=== PATIENT | female | born 1970 | race Caucasian/White ===

== ENCOUNTER 2018-12-26 16:00 | Emergency (ER) | payer OTHER ==
[~2018-12-26] VITALS: Wt 78.0 kg
[~2018-12-26 16:00] MED LIST: ACET-2158 PO; METO-319 PO
[2018-12-26] MEDS ORDERED: KETOROLAC 30 MG INJ IM STA (17:53)
[2018-12-26] MEDS ORDERED: CEFTRIAXONE 1 GM INJ IM ONE (18:00)
[2018-12-26] MEDS ORDERED: NPH10OT BOTH EARS (20:06)
[2018-12-26 20:15] VITALS: BP 154/80; PULSE 62; RESP 19
--- NOTE | 2018-12-27 01:20 | ERD ---
ER Documentation Chief Complaint Chief Complaint chau ear pain HPI 48-year-old female presented emergency department complaining of bilateral ear pain and mastoid pain for the past 2 weeks. Current pain is rated 8/10 in severity and constant. She denies having the symptoms in the past. Symptoms are worse at night. She took [id number] medication with some relief. She denies any fevers or chills or other symptoms at this time. ROS All systems reviewed and are negative except as per history of present illness. Medications Home Meds Active Scripts Neomycin/Polymyxin/Hydrocort* (Cortisporin* Otic) 10 Ml Susp, 4 DROP BOTH EARS QID for 7 Days, #2 BOTTLE Prov:IDALMIS BROWNLEE PA-C 12/26/18 Acetaminophen (TYLENOL 325 MG TAB) 325 Mg Tab, 650 MG PO Q6H PRN for PAIN, #0 TAB Prov:DARCY CARROLL NP 04/02/14 Reported Medications Metoprolol Succinate* (Toprol XL*) 50 Mg Tab.er.24h, 50 MG PO DAILY, TAB 07/12/14 Allergies Allergies: Coded Allergies: No Known Allergy (Unverified , 07/12/14) PMhx/Soc Medical and Surgical Hx: pt denies Medical Hx History of Surgery: Yes (c- section) Anesthesia Reaction: No Hx Neurological Disorder: No Hx Respiratory Disorders: No Hx Cardiac Disorders: No Hx Psychiatric Problems: No Hx Miscellaneous Medical Probl: No Hx Alcohol Use: No Hx Substance Use: No Hx Tobacco Use: No Smoking Status: Never smoker FmHx Family History: No diabetes Physical Exam Vitals Vital Signs Date Temp Pulse Resp B/P (MAP) Pulse Ox O2 O2 Flow FiO2 Time Delivery Rate 12/26/18 98.0 62 19 154/80 100 Room Air 20:15 (104) 12/26/18 98.1 89 18 160/92 99 16:05 (114) Physical Exam Const: No acute distress Head: Atraumatic Eyes: Normal Conjunctiva ENT: Normal External Ears, Nose and Mouth. Neck: Full range of motion. No meningismus. Resp: Clear to auscultation bilaterally Cardio: Regular rate and rhythm, no murmurs Abd: Soft, non tender, non distended. Normal bowel sounds Skin: No petechiae or rashes Back: No midline or flank tenderness Ext: No cyanosis, or edema Neur: Awake and alert Psych: Normal Mood and Affect Results 24 hrs Laboratory Tests Test 12/26/18 18:22 POC Beta HCG, Qualitative NEGATIVE Current Medications Medications Dose Sig/Fatmata Start Time Status Last (Trade) Ordered Route PRN Stop Time Admin Dose Reason Admin Ceftriaxone 1 gm ONCE ONCE 12/26/18 DC 12/26/18 Sodium IM 18:00 18:39 (Rocephin) 12/26/18 18:01 Ketorolac 30 mg ONCE STAT 12/26/18 DC 12/26/18 Tromethamine IM 17:53 18:40 (Toradol) 12/26/18 17:57 [place] [id number] Radiology Main Line: [phone] DIAGNOSTIC IMAGING REPORT Patient: WILMER MARIN : 1970 Age: 48 Sex: F MR #: [id number] DOS: 12/26/18 0000 Ordering MD: IDALMIS BROWNLEE PA-C Location: [facility] Room/Bed: PROCEDURE: CT Temporal Bones. CLINICAL INDICATION: 48 -year-old female. Bilateral Mastoid tenderness. TECHNIQUE: A CT of the temporal bones was performed on a multi-slice CT scanner utilizing high-resolution axial images. Sagittal, coronal, and multiplanar reformatted images were made. One or more the following dose reduction techniques were utilized: Automated exposure control, adjustment of the mA/ or kV according to patient's size, or use of iterative reconstruction technique. DICOM images are available for review. The CTDIvol is 28.94 mGy and the DLP is 355.41 mGycm. COMPARISON: None. FINDINGS: RIGHT TEMPORAL BONE External auditory canal: Thickened soft tissues in the cartilaginous and osseous segment of the external auditory canal a resolving and canal narrowing. No significant cerumen. Normal appearing tympanic membrane. Mastoid process: Well pneumatized and aerated. Minimal fluid in a few inferior mastoid air cells. Intact tegmen tympani. No bone erosion. Normal appearing aditus ad antrum. Normal appearing vertical/mastoid segment of the facial nerve canal. Middle ear: Well pneumatized and aerated. Normal ossicular configuration. The scutum is sharp. Prussak's space is clear. No abnormal soft tissue in the epitympanum, mesotympanum or hypotympanum. The oval and round windows are clear. Normal appearing tympanic segment of the facial nerve canal. Inferior ear: Normal cochlear configuration. No demineralization around the cochlea. Normal appearing internal auditory canal. Normal vestibular aqueduct. No aberrant internal carotid artery. No dehiscent jugular bulb. Normal appearing labyrinthine segment of the facial nerve canal. No evidence of a perilymphatic fistula. LEFT TEMPORAL BONE External auditory canal: Thickened soft tissues involving the cartilaginous and bony segments of the external auditory canal resulting in luminal narrowing. Friable appearance involving the superficial soft tissues of the bony segment. No significant cerumen. Normal appearing tympanic membrane. Mastoid process: Well pneumatized and aerated. Minimal to mild mastoid air cell fluid, slightly more than on the right side. Intact tegmen tympani. No bone erosion. Normal appearing aditus ad antrum. Normal appearing vertical/mastoid segment of the facial nerve canal. Middle ear: Well pneumatized and aerated. Normal ossicular configuration. The scutum is sharp. Low attenuation material is present in Prussak's space. No abnormal soft tissue in the epitympanum, mesotympanum or hypotympanum. The oval and round windows are clear. Normal appearing tympanic segment of the facial nerve canal. Inferior ear: Normal cochlear configuration. No demineralization around the cochlea. Normal appearing internal auditory canal. Normal vestibular aqueduct. No aberrant internal carotid artery. No dehiscent jugular bulb. Normal appearing labyrinthine segment of the facial nerve canal. No evidence of a perilymphatic fistula. IMPRESSION: 1. Abnormal soft tissue in the left Prussak's space. This could represent fluid or small cholesteatoma. 2. Mild to moderate bilateral external otitis, left slightly greater than right. 3. Minimal right mastoid air cell fluid. Minimal to mild left mastoid air cell fluid. 4. No significant inflammatory changes noted within the soft tissues around the mastoid processes which were included in the film of view. RPTAT: HLRS Lexii Dunbar, Physician Date Time Electronically viewed and signed by Lexii Dunbar Physician on 12/26/2018 20:02 RS/ CC: IDALMIS BROWNLEE PA-C/[facility] 40-year-old female presents to the emergency department with signs, symptoms, w ork-up most consistent with bilateral otitis externa. Patient did have some tenderness to the mastoid bilaterally and so CT scan was obtained to rule out mastoiditis. No evidence of mastoiditis, meningitis, sepsis, or other emergencies. Patient will be discharged home with prescriptions and she was in agreement with the diagnosis, plan, need for follow-up, return precautions. Patient's blood pressure was elevated (>120/80) but appears stable without evidence of hypertension emergency or urgency. The patient is to follow-up and pursue outpatient monitoring and therapy with their primary care physician within 1 week and return immediately if they have any new, worsening, or concerning symptoms. Departure Diagnosis: Primary Impression: Otitis externa Condition: Fair Patient Instructions: External Ear Infection (Adult) [facility] Usted se hernandez hecho un examen mdico de control que le indica que no est en murphy condicin que requiera tratamiento urgente en el Departamento de Emergencia. Un estudio ms profundo y el tratamiento de carbajal condicin pueden esperar sin ningn riesgo hasta que usted sea atendida/o en el consultorio de carbajal mdico o murphy clnica. Es responsabilidad suya arreglar murphy tash para el seguimiento del bart. MANEJO DE CONDICIONES NO URGENTES EN EL FUTURO 1) Si usted tiene un mdico de atencin primaria: Usted debera llamar a carbajal mdico de atencin primaria antes de venir al departamento de emergencia. Despus de las horas de consultorio, carbajal doctor o carbajal asociado/a est disponible por telfono. El mdico o enfermero de andreia en el servicio telefnico puede asesorarle por vu medio para atender el problema, o bart contrario se puede programar murphy tash. 2) Si usted no tiene un mdico de atencin primaria: Llame al mdico o clnica de referencia que aparece abajo herman las horas de consultorio para hacer murphy tash para que le vean. CLINICAS: [facility] [phone] [facility] [phone] [facility] [phone] [facility] [phone] [facility] [phone] [facility] [phone] [address] Additional Instructions: Llame al doctor MAANA y robert murphy TASH PARA DENTRO DE 1-2 JC.Dgale a la secretaria que nosotros le instruimos hacer esta tash.Avise o llame si carbajal condicin se empeora antes de la tash. Regresa aqui si peor o no mejor. IDALMIS BROWNLEE PA-C December 27, 2018 01:20 PRISCILLA MCMAHON MD December 28, 2018 12:02
== END 2018-12-26 20:16 | disposition home or self-care (01) ==
LOC: FTE 16:00
DX: H60.93 Unspecified otitis externa, bilateral (principal)
CPT/HCPCS: 70480; 81025; 96372; J0696; J1885; Z7502